=== PATIENT | male | born 1980 | race African-American/Black ===

== ENCOUNTER 2018-12-23 15:14 | Emergency (ER) | payer OTHER ==
[~2018-12-23] VITALS: Ht 165.1 cm; Wt 101.2 kg
[~2018-12-23 15:14] MED LIST: IBUP-974 PO
[2018-12-23 15:19] VITALS: BP 139/71
[2018-12-23] MEDS ORDERED: KETOROLAC 60 MG/2 ML VIAL IM ONE (16:05)
[2018-12-23] MEDS ORDERED: HYDROcodone/APAP 10/325 MG 1 TAB TAB PO PRN (16:05)
[2018-12-23 16:26] LABS: BILIRUBIN,URINE NEGATIVE (NEGATIVE); BLOOD, URINE 2+ (NEGATIVE); COLOR,URINE YELLOW (YELLOW); LEUKOCYTE ESTERASE ,URINE 3+ (NEGATIVE); NITRITE, URINE NEGATIVE (NEGATIVE); UGLUCOSE NEGATIVE (NEGATIVE)
[2018-12-23 16:27] LABS: APPEARANCE,URINE HAZY (CLEAR)
--- NOTE | 2018-12-23 16:27 | NUR ---
MEDICATED FOR PAIN. FAMILY AT BEDSIDE
[2018-12-23 16:30] LABS: RBC,URINE 11-20 (MOD) /HPF (0-5); WBC,URINE TOO MANY TO COUNT /HPF (0-5)
--- NOTE | 2018-12-23 16:30 | NUR ---
PATIENT C/O RT TESTCLE EDEMA AND PAIN X 5 DAYS, WORSENING TODAY, WORSENING TODAY, DIFFICULT TO WALK, PATIENT DENIES DYSURIA/DISCHARGE. 06/10 ACHING PAIN, DENIES RADIATING. DENIES DIFFICULTY URINATING. Addendum: 12/23/18 at 1808 by [email or web address] PT ADMITS TO NONPRODUCTIVE COUGH, CLEAR LUNG SOUNDS BILAT, RESPIRATIONS EVEN AND UNLABORED. 99% ON RA.
--- NOTE | 2018-12-23 16:35 | NUR ---
TORRES MACIAS AT BEDSIDE
--- NOTE | 2018-12-23 16:50 | NUR ---
XRAY AT BEDSIDE
[2018-12-23] MEDS ORDERED: cefTRIAXone 1,000 MG in LIDOCAINE MPF 1% - 5 mL VIAL 2.1 ML IM ONE (17:05)
[2018-12-23] MEDS ORDERED: AZITHROMYCIN 250 MG TAB PO ONE (17:05)
[2018-12-23 17:15] LABS: BASOPHILS % (AUTO) 0.2 % (0.0-2.0); EOSINOPHILS # (AUTO) 0.1 K/uL (0-0.4); EOSINOPHILS % (AUTO) 1.2 % (0.0-4.0); HEMATOCRIT 40.7 % (36-52); HEMOGLOBIN 13.5 g/dL (12.0-18.0); LYMPHOCYTES # (AUTO) 0.8 K/uL (2.0-11.5); LYMPHOCYTES % (AUTO) 7.7 % (20.5-51.1); MEAN CORPUSCULAR HEMOGLOBIN 28 pg (27-31); MEAN CORPUSCULAR HGB CONC 33 g/dL (33-37); MEAN CORPUSCULAR VOLUME 85.2 fL (80-94); MONOCYTES # (AUTO) 1.3 K/uL (0.8-1.0); MONOCYTES % (AUTO) 11.5 % (1.7-9.3); NEUTROPHILS # (AUTO) 8.7 K/uL (1.8-7.7); NEUTROPHILS % (AUTO) 79.4 % (42.2-75.2); PLATELET COUNT (AUTO) 264 K/uL (140-450); RED BLOOD CELL COUNT(AUTO) 4.77 MIL/uL (4.20-6.10)
[2018-12-23 17:28] LABS: ANION GAP 13.6 (8-16); CARBON DIOXIDE 26.4 mmol/L (21-32); CREATININE 1.3 mg/dL (0.7-1.3)
[2018-12-23 17:29] LABS: PROTHROMBIN TIME 9.8 secs (10.8-13.4)
[2018-12-23 17:34] LABS: ALBUMIN 3.2 g/dL (3.4-5.0); TOTAL BILIRUBIN 0.4 mg/dL (0.0-1.0)
[2018-12-23] MEDS ORDERED: LEVOFLOXACIN 500 MG TAB PO ONE (17:45)
--- NOTE | 2018-12-23 17:50 | NUR ---
PT TO US WITH TECH
[2018-12-23 18:34] VITALS: BP 128/68
--- NOTE | 2018-12-23 18:35 | NUR ---
Patient discharged with v/s stable. Written and verbal after care instructions given and explained. Patient alert, oriented and verbalized understanding of instructions. Ambulatory with steady gait. All questions addressed prior to discharge. ID band removed. Patient advised to follow up with PMD. Rx of LEVAQUIN,PROMETHAZINE,VENTOLIN AND IBUPROFEN given. Patient educated on indication of medication including possible reaction and side effects. Opportunity to ask questions provided and answered.
[2018-12-25 06:29] LABS: CHLAMYDIA TRACHOMATIS AMP DNA Negative (Negative)
== END 2018-12-23 18:35 | disposition home or self-care (01) ==
LOC: MED 15:14
DX: N45.3 Epididymo-orchitis (principal); J40 Bronchitis, not specified as acute or chronic; F17.200 Nicotine dependence, unspecified, uncomplicated; Z79.1 Long term (current) use of non-steroidal anti-inflammatories (NSAID)
CPT/HCPCS: 36415; 71045; 76870; 80053; 81001; 85025; 85610; 87086; 87491; 87804; 96372; 99284; J0696; J1885; J2001; Q0092

== ENCOUNTER 2019-11-18 05:15 | Emergency (ER) | payer OTHER ==
[~2019-11-18] VITALS: Ht 165.1 cm; Wt 104.3 kg
[2019-11-18] MEDS ORDERED: KETOROLAC 60 MG/2 ML VIAL IM ONE (05:20)
--- NOTE | 2019-11-18 05:23 | NUR ---
Bill rider in [facility] - 11/18/19 at 0524 by ALYSON PT TAKEN TO BED 2
[2019-11-18 05:24] VITALS: BP 136/89
--- NOTE | 2019-11-18 05:24 | NUR ---
PT TAKEN TO BED 3
--- NOTE | 2019-11-18 05:25 | NUR ---
CAME IN WITH C/O BACK PAIN, S/P CARRYING BOXES YESTERDAY
--- NOTE | 2019-11-18 06:50 | NUR ---
RESULT BACK AND NOTED BY ERMD AND FOR D/C
[2019-11-18 06:53] VITALS: BP 121/78
--- NOTE | 2019-11-18 06:53 | NUR ---
Patient discharged with v/s stable. Written and verbal after care instructions given and explained. Patient alert, oriented and verbalized understanding of instructions. Ambulatory with steady gait. All questions addressed prior to discharge. ID band removed. Patient advised to follow up with PMD. Rx of NAPROSYN 500MG given. Patient educated on indication of medication including possible reaction and side effects. Opportunity to ask questions provided and answered.
== END 2019-11-18 06:53 | disposition home or self-care (01) ==
LOC: MED 05:15
DX: S23.3XXA Sprain of ligaments of thoracic spine, initial encounter (principal); Z79.899 Other long term (current) drug therapy; X50.0XXA Overexertion from strenuous movement or load, initial encounter; Y93.89 Activity, other specified; Y92.89 Other specified places as the place of occurrence of the external cause; Y99.8 Other external cause status
CPT/HCPCS: 72072; 96372; 99283; J1885

== ENCOUNTER 2020-09-15 22:54 | Emergency (ER) | payer OTHER ==
[~2020-09-15] VITALS: Ht 165.1 cm; Wt 108.9 kg
[2020-09-15 23:00] VITALS: BP 140/90
--- NOTE | 2020-09-15 23:03 | NUR ---
TO LOBBY A/W BED AMBULATORY
--- NOTE | 2020-09-15 23:34 | NUR ---
PT AMBULATED TO CHAIR A
--- NOTE | 2020-09-15 23:35 | NUR ---
PT WOUND IRRIGATED WITH NORMAL SALINE
[2020-09-15] MEDS ORDERED: BACITRACIN OINT 500 UNITS/GM PKT TP ONE (23:40)
[2020-09-15] MEDS ORDERED: LIDOCAINE MPF 1% 10 MG/ML VIAL INJ ONE (23:40)
--- NOTE | 2020-09-16 00:42 | NUR ---
[facility] WAS CALLED, PD TO COME TO ER.
[2020-09-16 00:48] VITALS: BP 140/90
== END 2020-09-16 00:48 | disposition home or self-care (01) ==
LOC: MED 22:54
DX: S51.811A Laceration without foreign body of right forearm, initial encounter (principal); F17.200 Nicotine dependence, unspecified, uncomplicated; Z79.899 Other long term (current) drug therapy; Z98.890 Other specified postprocedural states; X99.1XXA Assault by knife, initial encounter; Y93.89 Activity, other specified; Y92.89 Other specified places as the place of occurrence of the external cause; Y99.8 Other external cause status
CPT/HCPCS: 12002; 99282; J2001

== ENCOUNTER 2021-10-26 19:13 | Emergency (ER) | payer OTHER ==
[~2021-10-26] VITALS: Ht 165.1 cm; Wt 113.4 kg
[2021-10-26 20:12] VITALS: BP 89/57
--- NOTE | 2021-10-26 20:21 | NUR ---
patient in tent 3
[2021-10-26] MEDS ORDERED: ALBUTEROL SULFATE/IPRATROPIU 3 ML SOL IH ONE (23:10)
--- NOTE | 2021-10-26 23:14 | NUR ---
RT for breathing tx
--- NOTE | 2021-10-27 00:20 | NUR ---
patient ambulated 20 feet oxygen saturation at 91%-93%
[2021-10-27] MEDS ORDERED: AZIT250T4 PO (00:22)
[2021-10-27] MEDS ORDERED: ALBU1.25 NEB (00:22)
[2021-10-27 01:21] VITALS: BP 119/75
--- NOTE | 2021-10-27 01:21 | NUR ---
Patient discharged with v/s stable. Written and verbal after care instructions given and explained. Patient alert, oriented and verbalized understanding of instructions. Ambulatory with steady gait. All questions addressed prior to discharge. ID band removed. Patient advised to follow up with PMD. Rx of albuterol sulfate and azithromycin given. Patient educated on indication of medication including possible reaction and side effects. Opportunity to ask questions provided and answered.
== END 2021-10-27 01:21 | disposition home or self-care (01) ==
LOC: MED 19:13
DX: U07.1 COVID-19 (principal); J12.82 Pneumonia due to coronavirus disease 2019
CPT/HCPCS: 71045; 94640; 99283

== ENCOUNTER 2021-10-29 22:36 | Inpatient (IN) | payer OTHER, SELFPAY ==
[~2021-10-29] VITALS: Ht 165.1 cm; Wt 113.4 kg
[~2021-10-29 22:36] MED LIST changes: +ALBU1.25 NEB; +AZIT250T4 PO
[2021-10-29] MEDS ORDERED: ERGOCALCIFEROL 50,000 IU SGL PO ONE (23:20)
[2021-10-29] MEDS ORDERED: ZINC SULF 220 MG CAP PO ONE (23:20)
[2021-10-29] MEDS ORDERED: DEXAMETHASONE 4 MG/ML VIAL IVP ONE (23:20)
[2021-10-29 23:35] VITALS: BP 139/68
--- NOTE | 2021-10-29 23:37 | NUR ---
PT TAKEN TO BED 02.
[2021-10-30 00:31] LABS: BASOPHILS % (AUTO) 0.4 % (0.0-2.0); EOSINOPHILS % (AUTO) 0.2 % (0.0-4.0); LYMPHOCYTES # (AUTO) 0.8 K/uL (2.0-11.5); LYMPHOCYTES % (AUTO) 13.2 % (20.5-51.1); MEAN CORPUSCULAR HEMOGLOBIN 28 pg (27-31); MEAN CORPUSCULAR HGB CONC 34 g/dL (33-37); MEAN CORPUSCULAR VOLUME 82.2 fL (80-94); NEUTROPHILS # (AUTO) 4.4 K/uL (1.8-7.7); NEUTROPHILS % (AUTO) 70.2 % (42.2-75.2); PLATELET COUNT (AUTO) 370 K/uL (140-450); RED BLOOD CELL COUNT(AUTO) 4.99 MIL/uL (4.20-6.10); RED CELL DISTRIBUTION WIDTH 14.3 % (11.6-13.7); WHITE BLOOD COUNT (AUTO) 6.3 K/uL (4.8-10.8)
[2021-10-30 00:55] LABS: ANION GAP 14.5 (8-16); CARBON DIOXIDE 26.9 mmol/L (21-32); CREATININE 1.3 mg/dL (0.6-1.3); POTASSIUM 4.4 mmol/L (3.5-5.1); TOTAL BILIRUBIN 0.5 mg/dL (0.0-1.0)
[2021-10-30] MEDS ORDERED: MAG SULF 2000 MG/WATER PREMIX 50 ML IV PRN (01:40)
[2021-10-30] MEDS ORDERED: HYDROcodone/APAP 5/325 MG 1 TAB TAB PO PRN (01:40)
[2021-10-30] MEDS ORDERED: MAGNESIUM OXIDE 400 MG TAB PO PRN (01:40)
[2021-10-30] MEDS ORDERED: ACETAMINOPHEN 325 MG TAB PO PRN (01:40)
[2021-10-30] MEDS ORDERED: KCL 20 MEQ/WATER INJ PREMIX 200 ML IV PRN (01:40)
[2021-10-30] MEDS ORDERED: POTASSIUM CHLORIDE 10 MEQ TABER PO PRN (01:40)
--- NOTE | 2021-10-30 01:42 | NUR ---
PT PRESENTS LAYING IN BED ON RA SATING 99%. RESPIRATIONS AT 28BPM, NO USE OF ACCESSOPRY MUSLCES, NO SINGS OF RESPIRATORY DISTRESS AT THIS TIME. PT STATES HE IS NOT SOB BUT HAS COUGHING SPELLS AND PRODUCING PHLEM. WILL CONTINUE TO MONITOR.
[2021-10-30] MEDS ORDERED: remdesivir COMMUNICATION ORDER 1 EA MISC MC PRN (01:45)
--- NOTE | 2021-10-30 01:50 | NUR ---
Bill rider in [facility] - 10/30/21 at 0205 by YAO PATIENT ALERT ORIENTED NOT COMPLAINING OF PAIN VITAL SIGNS IN NORMAL LIMITS PATIENT IS NOW WORKING IN HER COMPUTER //[employer] RN
[2021-10-30] MEDS ORDERED: ZINC50TA76 PO (02:02)
[2021-10-30] MEDS ORDERED: DEC4 PO (02:02)
[2021-10-30] MEDS ORDERED: FLUV100T31 PO (02:02)
[2021-10-30] MEDS ORDERED: ROB PO (02:03)
--- NOTE | 2021-10-30 02:03 | NUR ---
PATIENT FEELING BETTER NOW AFTER GAVE THE DEKADRON ( dexametazone ) SP02 94 % //Esvin RN
[2021-10-30 03:39] VITALS: BP 132/72
--- NOTE | 2021-10-30 03:42 | NUR ---
PATIENT ALERT ORIENTED STABLE VITALS SIGNS IN NORMAL LIMITS DC HOME ALL DC INSTRUCTION GAVE AND EXPLAINED COVID 19 TEACHING WAS GAVE //Esvin MUELLER
--- NOTE | 2021-10-30 07:18 | NUR ---
PATIENT HAS BEEN SCREENED AND CATEGORIZED MODERATE NUTRITION RISK. PATIENT WILL BE SEEN WITHIN 3-5 DAYS OF ADMISSION. 11/02/21-11/04/21 LUDA MENDOZA MS, RDN
[2021-10-30] MEDS ORDERED: DEXAMETHASONE 10 MG/ML VIAL IVP SCH (09:00)
[2021-10-30] MEDS ORDERED: ENOXAPARIN 40 MG/0.4 ML SYR SUBQ SCH (09:00)
== END 2021-10-30 03:42 | disposition home or self-care (01) | DRG 137 ==
LOC: MED 22:36 → MTU 10-30 01:42
PROVIDERS: ADMIT Internal Medicine; ATTEND Internal Medicine
DX: U07.1 COVID-19 (principal); J96.01 Acute respiratory failure with hypoxia; N17.9 Acute kidney failure, unspecified; J12.82 Pneumonia due to coronavirus disease 2019; Z79.2 Long term (current) use of antibiotics; Z79.899 Other long term (current) drug therapy
CPT/HCPCS: 36415; 71045; 80053; 83605; 85025; 87040; 96374; 99285; J1100

== ENCOUNTER 2022-02-21 22:11 | Emergency (ER) | payer OTHER ==
[~2022-02-21] VITALS: Ht 165.1 cm; Wt 113.5 kg
[~2022-02-21 22:11] MED LIST changes: +DEC4 PO; +FLUV100T31 PO; +ROB PO; +ZINC50TA76 PO
--- NOTE | 2022-02-21 22:19 | NUR ---
ermd examing pt in triage
[2022-02-21 22:20] VITALS: BP 161/98
--- NOTE | 2022-02-21 22:23 | NUR ---
PATIENT TAKEN TO RAD VIA W/C
--- NOTE | 2022-02-21 22:29 | NUR ---
PT RETURN FROM RAD Addendum: 02/21/22 at 2238 by ALYSON PT RETURN FROM RADIOLOGY TO BED 11
--- NOTE | 2022-02-21 22:39 | NUR ---
PT TAKEN TO XRAY
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
[2022-02-21 23:02] LABS: BASOPHILS # (AUTO) 0.1 K/uL (0.00-0.22); BASOPHILS % (AUTO) 0.8 % (0.0-2.0); EOSINOPHILS # (AUTO) 0.3 K/uL (0-0.4); EOSINOPHILS % (AUTO) 3.9 % (0.0-4.0); HEMATOCRIT 41.3 % (36-52); HEMOGLOBIN 13.8 g/dL (12.0-18.0); LYMPHOCYTES # (AUTO) 2.2 K/uL (2.0-11.5); LYMPHOCYTES % (AUTO) 30.6 % (20.5-51.1); MEAN CORPUSCULAR HEMOGLOBIN 28 pg (27-31); MEAN CORPUSCULAR HGB CONC 33 g/dL (33-37); MEAN CORPUSCULAR VOLUME 85.2 fL (80-94); MONOCYTES # (AUTO) 0.9 K/uL (0.8-1.0); NEUTROPHILS # (AUTO) 3.7 K/uL (1.8-7.7); NEUTROPHILS % (AUTO) 51.7 % (42.2-75.2); PLATELET COUNT (AUTO) 230 K/uL (140-450); RED BLOOD CELL COUNT(AUTO) 4.85 MIL/uL (4.20-6.10); RED CELL DISTRIBUTION WIDTH 14.3 % (11.6-13.7); WHITE BLOOD COUNT (AUTO) 7.1 K/uL (4.8-10.8)
--- NOTE | 2022-02-21 23:05 | NUR ---
EKG PERFORMED AT BEDSIDE.
[2022-02-21 23:38] LABS: ALBUMIN 3.5 g/dL (3.4-5.0); ANION GAP 11.4 (8-16); ASPARTATE AMINOTRANSFERASE 21 U/L (15-37); CARBON DIOXIDE 27.2 mmol/L (21-32); CHLORIDE 107 mmol/L (98-107); CREATININE 1.1 mg/dL (0.6-1.3); GFR ARICAN-AMERICAN 95 mL/min (>90); GLUCOSE 119 mg/dL (74-106); POTASSIUM 3.6 mmol/L (3.5-5.1); SODIUM SERUM 142 mmol/L (136-145); TOTAL BILIRUBIN 0.3 mg/dL (0.0-1.0); UREA NITROGEN, BLOOD 13 mg/dL (7-18)
--- NOTE | 2022-02-22 00:06 | NUR ---
PT TAKEN TO CT
--- NOTE | 2022-02-22 00:28 | NUR ---
PT RETURN FROM CT
--- NOTE | 2022-02-22 00:48 | NUR ---
Ultrasound at bedside.
--- NOTE | 2022-02-22 03:48 | NUR ---
multiple attempts made to call RAD for US and CT results, per RAD results still pending.
[2022-02-22] MEDS ORDERED: NAPR-54 PO (03:57)
--- NOTE | 2022-02-22 04:00 | NUR ---
IV removed, catheter intact and site benign. Applied folded 4x4 gauze and tape to stop bleeding.
[2022-02-22 04:01] VITALS: BP 154/88
--- NOTE | 2022-02-22 04:01 | NUR ---
Patient discharged by Dr. Andres with v/s stable. Written and verbal after care instructions given and explained. Patient alert, oriented and verbalized understanding of instructions. Ambulatory with steady gait. All questions addressed prior to discharge. ID band removed. Patient advised to follow up with PMD. Rx of Naproxen given. Patient educated on indication of medication including possible reaction and side effects. Opportunity to ask questions provided and answered.
== END 2022-02-22 04:01 | disposition home or self-care (01) ==
LOC: MED 22:11
DX: R07.81 Pleurodynia (principal); Z79.899 Other long term (current) drug therapy
CPT/HCPCS: 36415; 71046; 71275; 80053; 84484; 85025; 85379; 93005; 93970; 99285; Q0092; Q9967

== ENCOUNTER 2022-07-15 12:06 | Emergency (ER) | payer OTHER ==
[~2022-07-15] VITALS: Ht 165.1 cm; Wt 114.9 kg
[~2022-07-15 12:06] MED LIST changes: -ALBU1.25 NEB; -AZIT250T4 PO; -DEC4 PO; -FLUV100T31 PO; -IBUP-974 PO; +NAPR-54 PO; -ROB PO; -ZINC50TA76 PO
[2022-07-15 12:08] VITALS: BP 141/89
--- NOTE | 2022-07-15 12:19 | NUR ---
PT AMB TO BED 9.
[2022-07-15] MEDS ORDERED: CIPR500T4 PO (14:06)
[2022-07-15] MEDS ORDERED: METR-520 PO (14:06)
--- NOTE | 2022-07-15 14:15 | NUR ---
Patient discharged with v/s stable. Written and verbal after care instructions given and explained. Patient alert, oriented and verbalized understanding of instructions. Ambulatory with steady gait. All questions addressed prior to discharge. ID band removed. Patient advised to follow up with PMD. Rx of FLAGYL, CIPRO given. Patient educated on indication of medication including possible reaction and side effects. Opportunity to ask questions provided and answered.
== END 2022-07-15 14:15 | disposition home or self-care (01) ==
LOC: MED 12:06
DX: K57.92 Diverticulitis of intestine, part unspecified, without perforation or abscess without bleeding (principal); K42.9 Umbilical hernia without obstruction or gangrene; I25.10 Atherosclerotic heart disease of native coronary artery without angina pectoris
CPT/HCPCS: 81002; 99284